=== PATIENT | female | born 1965 | race Caucasian/White ===

== ENCOUNTER 2020-09-14 10:55 | Outpatient (CLI) | payer OTHER ==
--- NOTE | 2020-09-14 12:36 | CT ---
Exam: Noncontrast chest CT; CT lung scan low dose HISTORY:Current smoker. Less than 1 pack a day for 40 years. COPD. Nicotine dependence. COMPARISON: None TECHNIQUE: Low-dose screening lung CT is performed utilizing institutional protocol FINDINGS: Lung screening specific (Lung-RADS): Suspicious. 4B. There is a spiculated solid mass in the right lo wer lobe measuring 1.6 cm anterior posterior x 1.6 cm mediolateral x 2.0 cm craniocaudal. This mass is adjacent to a bronchiole supplying the right lower lobe. Potential significant incidentals (Lung-RADS category S): None Pulmonary incidentals:There is a bleb in the right lower lobe, measuring 2.3 cm. Bleb is in the vicin ity of the aforementioned suspicious mass. Other incidentals: There are coronary artery calcifications. Atherosclerosis of the aorta. IMPRESSION: 1. Lung-RADS 4B. Suspicious. Spiculated solid nodule in the right lower lobe. Given the reported hist ory of colon cancer, PET imaging is recommended for further evaluation to assess for possible metastases. Due to the central location of the lesion, CT-guided biopsy may be technically challengin g. 2. Lung Rask category S: Negative. No new or unknown potential significant incidental findings requir ing urgent additional evaluation 3. Other incidentals as above. Findings conveyed to Dr. Abdi via [facility] on 09/14/2020 at 12:34 PM Code CR Transcribed Date/Time: 09/14/2020 1:10 PM
== END 2020-09-14 10:56 | disposition home or self-care (01) ==
LOC: BICCT 10:55
PROVIDERS: ATTEND Family Medicine
DX: Z12.2 Encounter for screening for malignant neoplasm of respiratory organs (principal); R91.8 Other nonspecific abnormal finding of lung field; I25.10 Atherosclerotic heart disease of native coronary artery without angina pectoris; I70.0 Atherosclerosis of aorta; Z87.891 Personal history of nicotine dependence
CPT/HCPCS: 71271